=== PATIENT | female | born 1990 | race Caucasian/White ===

== ENCOUNTER 2023-02-02 10:42 | Emergency (ER) | payer OTHER ==
[~2023-02-02] VITALS: Ht 165.1 cm; Wt 75.0 kg
[2023-02-02 10:45] VITALS: O2SAT 99
[2023-02-02] MEDS ORDERED: HYDROCODONE/ACETAMINOPHEN 5/325MG TABLET PO ONE ×2 (12:30→16:45)
[2023-02-02] MEDS ORDERED: CYCLOBENZAPRINE 10MG TABLET PO ONE (12:30)
[2023-02-02] MEDS ORDERED: SODIUM CHLORIDE 0.9% 1,000 ML IV ONE (13:00)
[2023-02-02] MEDS ORDERED: METRONIDAZOLE 500 MG PREMIX 100 ML IV ONE (13:00)
[2023-02-02] MEDS ORDERED: CEFTRIAXONE SODIUM 1 G/VIAL IM ONE (13:00)
[2023-02-02] MEDS ORDERED: CYCLOBENZAPRINE 10MG TABLET PO SCH (15:30)
[2023-02-02] MEDS ORDERED: HYDROCODONE/ACETAMINOPHEN 5/325MG TABLET PO SCH (15:30)
[2023-02-02 20:00] VITALS: BP 110/77; PULSE 79; RESP 18; TEMP 98.5
== END 2023-02-02 20:38 | disposition short-term general hospital (02) ==
LOC: ER 10:42 → CANBEDREQ 21:18
DX: M54.16 Radiculopathy, lumbar region (principal)
CPT/HCPCS: 81025; 72131; 99285; Z7610; J7030